=== PATIENT | male | born 1980 | race Caucasian/White ===

== ENCOUNTER 2018-02-23 09:13 | Emergency (ER) | payer OTHER ==
[2018-02-23 09:20] VITALS: RESP 18; TEMP 97.9
[2018-02-23] MEDS ORDERED: SODIUM CHLORIDE 0.9% 1,000 ML IV STA (09:51)
--- NOTE | 2018-02-23 09:56 | ED ---
General Adult HPI - General Chief complaint: Abdominal Pain Stated complaint: groin/back pain Time Seen by Provider: 02/23/18 09:38 Source: patient, RN notes reviewed Mode of arrival: ambulatory Limitations: no limitations - History of Present Illness Initial comments: Patient is a 37-year-old male presenting to the emergency room today with a chief complaint of hematuria and right-sided flank pain. Patient does admit that he believes he pulled a groin muscle one week ago. He states he was pointed 2 year are the words. There was no specific injury but later in the day he was feeling some pain into the right groin. She did follow-up with physician. Diagnosed with a groin pull. He was having some hematuria. He states that that cleared up after a few days today it has started once again. He is experiencing some pain right side of the back. At times feels some radiation to the patient denies any other complaints or symptoms. Patient denies any recent fever, chills, shortness of breath, chest pain, abdominal pain , nausea or vomiting, numbness or tingling, headaches or visual changes, or any other complaints. - Related Data Home Medications Medication Instructions Recorded Confirmed Naproxen [Naprosyn] 500 mg PO Q12HR 02/23/18 02/23/18 Allergies Allergy/AdvReac Type Severity Reaction Status Date / Time No Known Allergies Allergy Verified 02/23/18 09:48 Review of Systems ROS Statement: Those systems with pertinent positive or pertinent negative responses have been documented in the HPI. ROS Other: All systems not noted in ROS Statement are negative. Past Medical History Past Medical History: No Reported History History of Any Multi-Drug Resistant Organisms: None Reported Past Surgical History: Tonsillectomy Past Psychological History: No Psychological Hx Reported Smoking Status: Current every day smoker Past Alcohol Use History: None Reported Past Drug Use History: None Reported General Exam - General Exam Comments Initial Comments: General: The patient is awake and alert, in no distress, and does not appear acutely ill. Eye: There is normal conjunctiva bilaterally. No signs of icterus. Ears, nose, mouth and throat: There are moist mucous membranes and no oral lesions. Neck: The neck is supple, there is no tenderness or JVD. Cardiovascular: There is a regular rate and rhythm. No murmur, rub or gallop is appreciated. Respiratory: Lungs are clear to auscultation, respirations are non-labored, breath sounds are equal. No wheezes, stridor, rales, or rhonchi. Gastrointestinal: Soft, non-distended, non-tender abdomen without masses or organomegaly noted. There is no rebound or guarding present. No CVA tenderness. Musculoskeletal: Normal ROM, no tenderness. Sensation intact. Strength 5/5. Pulses equal bilaterally 2+. Neurological: A&O x 3. CN II-XII intact, There are no obvious motor or sensory deficits. Coordination appears grossly intact. Speech is normal. Skin: Skin is warm and dry and no rashes or lesions are noted. Psychiatric: Cooperative, appropriate mood & affect, normal judgment. Limitations: no limitations Course Vital Signs 02/23/18 09:15 Temperature 97.9 F Pulse Rate 88 Respiratory 18 Rate Blood Pressure 166/91 O2 Sat by Pulse 98 Oximetry Medical Decision Making - Medical Decision Making Patient's CT the abdomen and pelvis reviewed does show moderate right-sided hydronephrosis with severe proximal right ureteral dilation without radiopaque obstructing calculus. Possible could be right ureteral stone non-radiopaque versus stricture versus mass. Results were discussed with the patient also attending physician Dr. Sharif who did discuss with Dr. Lomas urologist on-call who recommends following up in the office. - Lab Data Result diagrams: 02/23/18 10:02 02/23/18 10:02 Lab Results 02/23/18 02/23/18 02/23/18 Range/Units 09:57 10:02 10:02 WBC 7.9 (3.8-10.6) k/uL RBC 5.67 (4.30-5.90) m/uL Hgb 16.5 (13.0-17.5) gm/dL Hct 47.7 (39.0-53.0) % MCV 84.2 (80.0-100.0) fL MCH 29.2 (25.0-35.0) pg MCHC 34.7 (31.0-37.0) g/dL RDW 12.9 (11.5-15.5) % Plt Count 293 (150-450) k/uL Neutrophils % 67 % Lymphocytes % 20 % Monocytes % 7 % Eosinophils % 3 % Basophils % 1 % Neutrophils # 5.3 (1.3-7.7) k/uL Lymphocytes # 1.6 (1.0-4.8) k/uL Monocytes # 0.6 (0-1.0) k/uL Eosinophils # 0.3 (0-0.7) k/uL Basophils # 0.1 (0-0.2) k/uL Sodium 142 (137-145) mmol/L Potassium 4.4 (3.5-5.1) mmol/L Chloride 109 H (98-107) mmol/L Carbon Dioxide 24 (22-30) mmol/L Anion Gap 9 mmol/L BUN 12 (9-20) mg/dL Creatinine 0.87 (0.66-1.25) mg/dL Est GFR (CKD-EPI)AfAm >90 (>60 ml/min/1.73 sqM) Est GFR (CKD-EPI)NonAf >90 (>60 ml/min/1.73 sqM) Glucose 86 (74-99) mg/dL Calcium 9.6 (8.4-10.2) mg/dL Total Bilirubin 0.5 (0.2-1.3) mg/dL AST 26 (17-59) U/L ALT 44 (21-72) U/L Alkaline Phosphatase 71 (38-126) U/L Total Protein 7.7 (6.3-8.2) g/dL Albumin 4.6 (3.5-5.0) g/dL Amylase 49 (30-110) U/L Lipase 61 (23-300) U/L Urine Color Light Yellow Urine Appearance Clear (Clear) Urine pH 5.5 (5.0-8.0) Ur Specific Nikolai 1.005 (1.001-1.035) Urine Protein Negative (Negative) Urine Glucose (UA) Negative (Negative) Urine Ketones Negative (Negative) Urine Blood Moderate H (Negative) Urine Nitrite Negative (Negative) Urine Bilirubin Negative (Negative) Urine Urobilinogen <2.0 (<2.0) mg/dL Ur Leukocyte Esterase Negative (Negative) Urine RBC 17 H (0-5) /hpf Urine WBC 1 (0-5) /hpf Urine Bacteria Rare H (None) /hpf Urine Mucus Rare H (None) /hpf Disposition Clinical Impression: Hydronephrosis, Hematuria Disposition: HOME SELF-CARE Condition: Good Instructions: Hydronephrosis (ED) Additional Instructions: Please follow-up urologist over the next 2 days. Please return here to emergency room if any symptoms increase or worsen or for any other concerns. Is patient prescribed a controlled substance at d/c from ED?: No Referrals: None,Stated [Primary Care Provider] - 1-2 days Rei Rendon MD [STAFF PHYSICIAN] - 1-2 days Time of Disposition: 11:24
[2018-02-23 10:15] LABS: Basophils # (A) 0.1 k/uL (0-0.2); Basophils % (A) 1 %; Eosinophils # (A) 0.3 k/uL (0-0.7); Eosinophils % (A) 3 %; HCT 47.7 % (39.0-53.0); HGB 16.5 gm/dL (13.0-17.5); Lymphocytes # (A) 1.6 k/uL (1.0-4.8); Lymphocytes % (A) 20 %; MCH 29.2 pg (25.0-35.0); MCHC 34.7 g/dL (31.0-37.0); MCV 84.2 fL (80.0-100.0); Monocytes # (A) 0.6 k/uL (0-1.0); Monocytes % (A) 7 %; Neutrophils # (A) 5.3 k/uL (1.3-7.7); Neutrophils % (A) 67 %; Platelet Count 293 k/uL (150-450); RBC 5.67 m/uL (4.30-5.90); RDW 12.9 % (11.5-15.5); WBC 7.9 k/uL (3.8-10.6)
--- NOTE | 2018-02-23 10:28 | XR ---
EXAMINATION TYPE: XR KUB DATE OF EXAM: 02/23/2018 COMPARISON: NONE HISTORY: Pain TECHNIQUE: One view abdominal series FINDINGS: The osseous structures are intact. The bowel gas pattern is nonspecific. Linear changes at the left lung base most typical atelectasis or scar. Calcifications the pelvis likely is vascular. IMPRESSION: 1. Nonspecific abdomen.
[2018-02-23 10:30] LABS: ALT 44 U/L (21-72); AST 26 U/L (17-59); Albumin 4.6 g/dL (3.5-5.0); Alkaline Phosphatase 71 U/L (38-126); Amylase 49 U/L (30-110); Anion Gap 9 mmol/L; Blood Urea Nitrogen 12 mg/dL (9-20); Calcium 9.6 mg/dL (8.4-10.2); Carbon Dioxide 24 mmol/L (22-30); Chloride 109 mmol/L (98-107); Glucose 86 mg/dL (74-99); Lipase 61 U/L (23-300); Potassium 4.4 mmol/L (3.5-5.1); Sodium 142 mmol/L (137-145); Total Bilirubin 0.5 mg/dL (0.2-1.3); Total Protein 7.7 g/dL (6.3-8.2)
[2018-02-23 10:34] LABS: Appearance,Urine Clear (Clear); Bacteria,Urine Rare /hpf; Bilirubin,Urine Negative (Negative); Blood,Urine Moderate (Negative); Color,Urine Light Yellow; Glucose,Urine (UA) Negative (Negative); Ketones,Urine Negative (Negative); Leukocyte Esterase,Urine Negative (Negative); Mucus,Urine Rare /hpf; Nitrite,Urine Negative (Negative); PH, Urine 5.5 (5.0-8.0); Protein,Urine Negative (Negative); RBC,Urine 17 /hpf (0-5); Specific Gravity,Urine 1.005 (1.001-1.035); Urobilinogen,Urine <2.0 mg/dL (<2.0); WBC,Urine 1 /hpf (0-5)
--- NOTE | 2018-02-23 10:57 | CT ---
EXAMINATION TYPE: CT abdomen pelvis wo con DATE OF EXAM: 02/23/2018 COMPARISON: None HISTORY: Right sided flank pain CT DLP: 712.6 mGycm Automated exposure control for dose reduction was used. TECHNIQUE: Helical acquisition of images was performed from the lung bases through the pelvis. FINDINGS: LUNG BASES: No significant abnormality is appreciated. LIVER/GB: There are multiple subcentimeter hypoattenuated lesions within the left hepatic lobe at b[address] st 6 in number that are too small to accurately characterize and also incompletely characterized with out intravenous contrast. No intrahepatic biliary ductal dilatation is seen. No cholelithiasis. PANCREAS: No significant abnormality is seen. SPLEEN: No significant abnormality is seen. ADRENALS: No significant abnormality is seen. KIDNEYS: There is a punctate left midpole renal calculus measuring 1 to 2 mm. Additional 2 mm left lo wer pole renal calculus is seen. No left-sided hydronephrosis. On the right there is moderate right hydronephrosis with severe right ureteral dilatation however the re is no focal obstructing radiopaque calculus seen. The ureter, to an abrupt cut off and mid to dist al ureter is not well visualized. No radiopaque calculi within the urinary bladder. A 3 mm nonobstruc ting right lower pole renal calculus is present FREE AIR: No free air is visualized REPRODUCTIVE ORGANS: No significant abnormality is seen URINARY BLADDER: No significant abnormality is seen. ADENOPATHY: Scattered nonenlarged mesenteric lymph nodes are seen. No greater than 1 cm short axis l ymph node is seen in the abdomen or pelvis. OSSEOUS STRUCTURES: No significant abnormality is seen. BOWEL: There is a small annular hernia and paraesophageal small lymph nodes measuring 6 mm on the le ft on image 7 and 7 mm on image 15. Appendix is within normal limits. Few small colonic diverticula a re noted without pericolonic fat stranding. No dilated large or small bowel. IMPRESSION: 1. MODERATE RIGHT-SIDED HYDRONEPHROSIS AND SEVERE PROXIMAL RIGHT URETERAL DILATATION WITHOUT RADIOPAQ UE OBSTRUCTING CALCULUS. POSSIBILITIES INCLUDE A RIGHT MID URETERAL NONRADIOPAQUE OBSTRUCTING CALCULU S, URETERAL STRICTURE, OR URETERAL MASS. 2. SMALL HIATAL HERNIA WITH ADJACENT PROMINENT BUT NONENLARGED LYMPH NODES. GIVEN THE ADJACENT LYMPH NODES ENDOSCOPY COULD BE CONSIDERED.
[2018-02-23 11:39] VITALS: BP 130/89; PULSE 66
== END 2018-02-23 11:42 | disposition home or self-care (01) ==
LOC: EC 09:13
DX: N13.30 Unspecified hydronephrosis (principal); N28.82 Megaloureter; F17.200 Nicotine dependence, unspecified, uncomplicated; Z79.1 Long term (current) use of non-steroidal anti-inflammatories (NSAID)
CPT/HCPCS: 36415; 74018; 74176; 80053; 81001; 82150; 83690; 85025; 96360; 99284

== ENCOUNTER 2018-12-18 06:56 | Emergency (ER) | payer OTHER ==
[2018-12-18 07:18] VITALS: BP 133/85; PULSE 70; RESP 16; TEMP 98.1
[2018-12-18] MEDS ORDERED: KETOROLAC 60 MG/2 ML VIAL IM STA (07:25)
[2018-12-18] MEDS ORDERED: DIAZEPAM 5 MG TAB PO STA (07:25)
[2018-12-18] MEDS ORDERED: LIDOCAINE 5% PATCH TOPICAL STA (07:25)
--- NOTE | 2018-12-18 07:29 | ED ---
General Adult HPI - General Chief complaint: Back Pain/Injury Stated complaint: Lower back pain Time Seen by Provider: 12/18/18 07:19 Source: patient, family, RN notes reviewed Mode of arrival: wheelchair Limitations: no limitations - History of Present Illness Initial comments: Patient 38-year-old male presented to the emergency room today with a chief complaint of increased lower back pain only outside. Patient states that approximately a week and half ago he was working. 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 Since he went to bend down and pick something up that was heavy. Tenderness lower back. Patient states is no radiation of the pain. There is no saddle anesthesia. No bowel or bladder incontinence retention. Patient does admit the pain left side of the lower back is worse with movements of bending, turning, twisting. He has been trying ibuprofen was also tried naproxen with little relief. He states pain increased last night when he was trying to sleep. Patient denies any other complaints or symptoms. Patient denies any recent fever, chills, shortness of breath, chest pain, abdominal pain, nausea or vomiting, numbness or tingling, headaches or visual changes, or any other complaints. - Related Data Home Medications Medication Instructions Recorded Confirmed Naproxen [Naprosyn] 500 mg PO Q12HR 02/23/18 02/23/18 Previous Rx's Medication Instructions Recorded Cyclobenzaprine [Flexeril] 10 mg PO TID #20 tab 12/18/18 Ibuprofen [Motrin] 800 mg PO Q6HR #30 tab 12/18/18 Lidocaine [Lidoderm 5% Patch] 1 patch TRANSDERM DAILY #7 patch 12/18/18 Allergies Allergy/AdvReac Type Severity Reaction Status Date / Time No Known Allergies Allergy Verified 12/18/18 07:15 Review of Systems ROS Statement: Those systems with pertinent positive or pertinent negative responses have been documented in the HPI. ROS Other: All systems not noted in ROS Statement are negative. Past Medical History Past Medical History: No Reported History History of Any Multi-Drug Resistant Organisms: None Reported Past Surgical History: Tonsillectomy Past Psychological History: No Psychological Hx Reported Smoking Status: Current every day smoker Past Alcohol Use History: None Reported Past Drug Use History: None Reported General Exam - General Exam Comments Initial Comments: General: The patient is awake and alert, in no distress, and does not appear acutely ill. Eye: No signs of icterus. Ears, nose, mouth and throat: There are moist mucous membranes and no oral lesions. Gastrointestinal: Soft nontender Musculoskeletal: Patient has normal appearance of the cervical thoracic lumbar spine with no step-off or deformity. No tenderness midline over the spinous processes. Patient does have tenderness left lower lumbar at the L4 to S1 area. Patient has full range motion. Sensations are intact. Strength is 5/5 both upper and lower extremities. Neurological: A&O x 3. CN II-XII intact, There are no obvious motor or sensory deficits. Coordination appears grossly intact. Speech is normal. Skin: Skin is warm and dry and no rashes or lesions are noted. Psychiatric: Cooperative, appropriate mood & affect, normal judgment. Limitations: no limitations Course Vital Signs 12/18/18 07:15 Temperature 98.1 F Pulse Rate 70 Respiratory 16 Rate Blood Pressure 133/85 O2 Sat by Pulse 97 Oximetry Medical Decision Making - Medical Decision Making Patient has no tenderness over the lumbar spine. He does have tenderness paravertebrally. Patient's symptoms are felt to be musculoskeletal. Will be continued be treated with anti-inflammatories along with muscle relaxer, Lidoderm. He was given Lidoderm patch in the emergency room along with Toradol and Valium. He is advised following up through his family doctor for further evaluation possible MRI if symptoms persist. He states understanding and is agreement. Disposition Clinical Impression: Acute low back pain Disposition: HOME SELF-CARE Condition: Good Instructions (If sedation given, give patient instructions): Acute Low Back Pain (ED) Additional Instructions: Please use medication as discussed. Please follow-up with family doctor in the next 2-5 days of symptoms have not improved. Please return to emergency room if the symptoms increase or worsen or for any other concerns. Prescriptions: Cyclobenzaprine [Flexeril] 10 mg PO TID #20 tab Lidocaine [Lidoderm 5% Patch] 1 patch TRANSDERM DAILY #7 patch Ibuprofen [Motrin] 800 mg PO Q6HR #30 tab Is patient prescribed a controlled substance at d/c from ED?: No Referrals: None,Stated [Primary Care Provider] - 1-2 days Time of Disposition: 07:28
== END 2018-12-18 07:53 | disposition home or self-care (01) ==
LOC: EC 06:56
DX: M54.5 Low back pain (principal); F17.200 Nicotine dependence, unspecified, uncomplicated; Z79.1 Long term (current) use of non-steroidal anti-inflammatories (NSAID)
CPT/HCPCS: 99283; 96372; J1885

== ENCOUNTER 2018-12-19 20:52 | Emergency (ER) | payer OTHER ==
[2018-12-19 21:01] VITALS: BP 151/77; PULSE 77; RESP 20; TEMP 98.4
[2018-12-19] MEDS ORDERED: ACET/COD 300 MG/30 MG STARTER PACK 6 TAB BTL PO STA (21:27)
--- NOTE | 2018-12-19 21:28 | ED ---
Back Pain HPI - General Chief Complaint: Back Pain/Injury Stated Complaint: Back pain Time Seen by Provider: 12/19/18 21:05 Source: patient, family Limitations: no limitations - History of Present Illness Initial Comments: 38-year-old male presenting for bilateral low back pain. 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 He states this is more lifting that is heavier than his usual job activities. Patient states he noticed that it seems to be the cause of the pain. Patient denies any falls or direct trauma to the back denies fever or IV drug use he denies history of cancer denies loss of bowel bladder control or urinary retention, he denies any loss of sensation of the lower extremities or radiation of the pain. He states it is a pulling sensation in the bilateral low back stretching across this plan of the back. Patient denies any midline pain. She states she is able to ambulate without difficulty however this does increase the pain. Patient states he present to the ER yesterday and was given Motrin, a muscle relaxant. He states the muscle relaxant does not seem to help the pain only makes him sleepy. Patient was inquiring about a possible different pain management methods. Remaining review systems negative upon arrival patient appears well no signs of acute distress. - Related Data Home Medications Medication Instructions Recorded Confirmed Naproxen [Naprosyn] 500 mg PO Q12HR 02/23/18 02/23/18 Previous Rx's Medication Instructions Recorded Cyclobenzaprine [Flexeril] 10 mg PO TID #20 tab 12/18/18 Ibuprofen [Motrin] 800 mg PO Q6HR #30 tab 12/18/18 Lidocaine [Lidoderm 5% Patch] 1 patch TRANSDERM DAILY #7 patch 12/18/18 Acetaminophen with Codeine 1 tab PO Q6H PRN 3 Days #12 tab 12/19/18 [Tylenol w/codeine #3] Allergies Allergy/AdvReac Type Severity Reaction Status Date / Time No Known Allergies Allergy Verified 12/19/18 21:01 Review of Systems ROS Statement: Those systems with pertinent positive or pertinent negative responses have been documented in the HPI. ROS Other: All systems not noted in ROS Statement are negative. Past Medical History Past Medical History: No Reported History Additional Past Medical History / Comment(s): back pain History of Any Multi-Drug Resistant Organisms: None Reported Past Surgical History: Tonsillectomy Past Psychological History: No Psychological Hx Reported Smoking Status: Current every day smoker Past Alcohol Use History: None Reported, Occasional General Exam - General Exam Comments Initial Comments: General: The patient is awake and alert, in no distress, and does not appear acutely ill. Eye: Pupils are equal, round and reactive to light, extra-ocular movements are intact. No nystagmus. There is normal conjunctiva bilaterally. No signs of icterus. Ears, nose, mouth and throat: There are moist mucous membranes and no oral lesions. Neck: The neck is supple, there is no tenderness or JVD. Cardiovascular: There is a regular rate and rhythm. No murmur, rub or gallop is appreciated. Respiratory: Lungs are clear to auscultation, respirations are non-labored, breath sounds are equal. No wheezes, stridor, rales, or rhonchi. Musculoskeletal: Normal inspection of the cervical thoracic and lumbar spine. Patient is able to toe walk. Normal gait. +2 patellar and Achilles reflexes. No mild clonus or fasciculations. No weakness of the lower extremities 5 out of 5 of the lower extremities bilaterally. Sensation intact including the saddle region of the lower extremities. +2 dorsalis pedis pulses bilaterally. Patient has diffuse tenderness of the lumbar aspect of spine no midline tenderness. Paravertebral tenderness. Neurological: A&O x 3. CN II-XII intact, There are no obvious motor or sensory deficits. Coordination appears grossly intact. Speech is normal. Skin: Skin is warm and dry and no rashes or lesions are noted. Psychiatric: Cooperative, appropriate mood & affect, normal judgment. Limitations: no limitations Course Vital Signs 12/19/18 20:57 Temperature 98.4 F Pulse Rate 77 Respiratory 20 Rate Blood Pressure 151/77 O2 Sat by Pulse 96 Oximetry Medical Decision Making - Medical Decision Making Very well-appearing 38-year-old male. No alarming history or physical examination findings. No midline tenderness. Neurovascularly intact. No history of trauma. Patient is afebrile well-appearing patient was concern of symptomatic control. He feels this is a low back strain. I concur given patient's history provided. Patient is provided a starter pack for Tylenol No. 3 as well as an outpatient prescription. I educated patient to continue Flexeril however staggering this when taking the Tylenol No. 3 do not recommend taking them at the same time. I recommend patient follow-up with primary care provider and return parameters were discussed this time we do feel patient is stable for discharge. Patient is agreeable to this care plan, was discharged appearing well Disposition Clinical Impression: Low back strain Disposition: HOME SELF-CARE Condition: Good Instructions (If sedation given, give patient instructions): Acute Low Back Pain (ED) Additional Instructions: Please use medication as discussed. Please follow-up with family doctor in the next 2 days. Please return to emergency room if the symptoms increase or worsen or for any other concerns. Prescriptions: Acetaminophen with Codeine [Tylenol w/codeine #3] 1 tab PO Q6H PRN 3 Days #12 tab PRN Reason: Severe Pain Is patient prescribed a controlled substance at d/c from ED?: Yes When asked, does pt state using other controlled substances?: No If prescribed controlled substance>3 days was MAPS reviewed?: Prescribed <3 Days If opioid is for acute pain is fill amount 7 days or less?: Yes If Rx opioid, was Start Talking consent form obtained?: Yes Referrals: None,Stated [Primary Care Provider] - 1-2 days [facility] [NON-STAFF] - 1-2 days Time of Disposition: 21:28
== END 2018-12-19 21:52 | disposition home or self-care (01) ==
LOC: EC 20:52
DX: S39.012A Strain of muscle, fascia and tendon of lower back, initial encounter (principal); F17.200 Nicotine dependence, unspecified, uncomplicated; Z79.1 Long term (current) use of non-steroidal anti-inflammatories (NSAID); X50.1XXA Overexertion from prolonged static or awkward postures, initial encounter; Y92.69 Other specified industrial and construction area as the place of occurrence of the external cause; Y93.89 Activity, other specified; Y99.0 Civilian activity done for income or pay
CPT/HCPCS: 99283

== ENCOUNTER → 2021-03-28 | Outpatient (CLI) | payer BC ==
--- NOTE | 2021-03-28 18:06 | XR ---
EXAMINATION TYPE: XR ankle complete LT DATE OF EXAM: 03/28/2021 COMPARISON: NONE HISTORY: Pain TECHNIQUE: 3 views FINDINGS: Ankle mortise is anatomic. I see no fracture nor dislocation. Joint spaces are normal. IMPRESSION: Negative left ankle exam. No fracture.
== END | disposition home or self-care (01) ==
LOC: RADXRMAIN 17:33
PROVIDERS: ATTEND Internal Medicine
DX: M25.572 Pain in left ankle and joints of left foot (principal)